=== PATIENT | female | born 1990 | race African-American/Black ===

== ENCOUNTER 2018-05-06 18:00 | Inpatient (IN) | payer MEDICAID ==
[2018-05-06] MEDS ORDERED: Sodium Chloride 0.9% 10 ML Syringe FLUSH PRN (18:40)
[2018-05-06] MEDS ORDERED: Nalbuphine 20 MG/1 ML Amp IVPUSH PRN (18:40)
[2018-05-06] MEDS ORDERED: Lidocaine 1% 50 ML MDV INJECT ONE (18:40)
[2018-05-06] MEDS ORDERED: Oxytocin/Lactated Ringers 10 UNIT/1,000 ML BAG IV SCH (18:45)
[2018-05-06] MEDS ORDERED: Ampicillin 2 GM in Sodium Chloride 0.9% 100 ML IV ONE (19:00)
[2018-05-06] MEDS ORDERED: ePHEDrine 50 MG/ML SDV IVPUSH PRN (19:23)
[2018-05-06] MEDS ORDERED: Ondansetron 4 MG/2 ML SDV IVPUSH PRN (19:23)
[2018-05-06] MEDS ORDERED: fentaNYL 100 MCG/2 ML SDV EPIDUR PRN (19:23)
[2018-05-06] MEDS ORDERED: Bupivacaine/fentaNYL/NS 100 ML Bag EPIDUR SCH (19:30)
--- NOTE | 2018-05-06 19:30 | PCM.PREANE ---
Preanesthetic Assessment - Anesthesia/Transfusion/Family Hx Anesthesia History: No Prior Anesthesia Family History of Anesthesia Reaction: No Transfusion History: No Prior Transfusion(s) Intubation History: Unknown - Review of Systems General: No Symptoms Pulmonary: No Symptoms Cardiovascular: No Symptoms Gastrointestinal: No Symptoms (GERD with ) Neurological: No Symptoms Other: Reports: None - Physical Assessment NPO Status Date: 05/06/18 NPO Status Time: 15:30 Pulse: 92 O2 Sat by Pulse Oximetry: 100 Respiratory Rate: 16 Blood Pressure: 127/74 Temperature: 37.4 C Height: 1.78 m Weight: 89.811 kg ASA Class: 2 Mental Status: Alert & Oriented x3 Airway Class: Mallampati = 2 Dentition: Reports: Normal Dentition, Caries Thyro-Mental Finger Breadths: 3 Mouth Opening Finger Breadths: 3 ROM/Head Extension: Full Lungs: Clear to Auscultation, Normal Respiratory Effort Cardiovascular: Regular Rate, Regular Rhythm, No Murmurs - Lab Values: Laboratory Last Values WBC 6.57 K/mm3 (3.98-10.04) 05/06/18 18:55 RBC 3.78 M/mm3 (3.98-5.22) L 05/06/18 18:55 Hgb 10.5 gm/L (11.2-15.7) L 05/06/18 18:55 Hct 33.6 % (34.1-44.9) L 05/06/18 18:55 MCV 88.9 fl (79.4-94.8) 05/06/18 18:55 MCH 27.8 pg (25.6-32.2) 05/06/18 18:55 MCHC 31.3 g/dl (32.2-35.5) L 05/06/18 18:55 RDW Std Deviation 43.3 fL (36.4-46.3) 05/06/18 18:55 Plt Count 199 K/mm3 (182-369) 05/06/18 18:55 MPV 11.5 fl (9.4-12.3) 05/06/18 18:55 Neut % (Auto) 60.7 % (34.0-71.1) 05/06/18 18:55 Lymph % (Auto) 26.2 % (19.3-51.7) 05/06/18 18:55 Will % (Auto) 11.7 % (4.7-12.5) 05/06/18 18:55 Eos % (Auto) 0.9 (0.7-5.8) 05/06/18 18:55 Baso % (Auto) 0.2 % (0.1-1.2) 05/06/18 18:55 Neut # (Auto) 3.99 K/mm3 (1.56-6.13) 05/06/18 18:55 Lymph # (Auto) 1.72 K/mm3 (1.18-3.74) 05/06/18 18:55 Will # (Auto) 0.77 K/mm3 (0.24-0.36) H 05/06/18 18:55 Eos # (Auto) 0.06 K/mm3 (0.04-0.36) 05/06/18 18:55 Baso # (Auto) 0.01 K/mm3 (0.01-0.08) 05/06/18 18:55 Above lab values reviewed and noted and within acceptable ranges to proceed with epidural. - Anesthesia Plan Pre-Op Medication Ordered: None - Acknowledgements Anesthesia Type Planned: Epidural Pt an Appropriate Candidate for the Planned Anesthesia: Yes Alternatives and Risks of Anesthesia Discussed w Pt/Guardian: Yes Pt/Guardian Understands and Agrees with Anesthesia Plan: Yes PreAnesthesia Questionnaire - CURRENT (IN HOUSE) MEDS Current Meds: Current Medications Ampicillin Sodium 2 gm/ Sodium (Chloride) 100 mls @ 200 mls/hr IV ONETIME ONE Stop: 05/06/18 19:29 Ampicillin Sodium 1 gm/ Sodium (Chloride) 100 mls @ 200 mls/hr IV Q4H DENNY Lactated Ringer's (Ringers, Lactated) 1,000 mls @ 100 mls/hr IV ASDIRECTED DENNY Oxytocin/Lactated Ringer's (Pitocin In Lr 10 Units/1,000 Ml) 10 unit in 1,000 mls @ 500 mls/hr IV .CONTINUOUS DENNY Nalbuphine HCl (Nubain) 10 mg IVPUSH Q2H PRN PRN Reason: Pain (moderate 4-6) Sodium Chloride (Saline Flush) 10 ml FLUSH ASDIRECTED PRN PRN Reason: Keep Vein Open Discontinued Medications Lidocaine HCl (Xylocaine 1%) 20 ml INJECT ONETIME ONE Stop: 05/06/18 18:41
[2018-05-06] MEDS ORDERED: Bupivacaine 0.25% 10 ML SDV ONE (22:00)
--- NOTE | 2018-05-06 22:23 | PCM.LDHP ---
L&D History of Present Illness - General Date of Service: 05/06/18 Admit Problem/Dx: Patient Status Order with Admit Dx/Problem 05/06/18 18:40 Patient Status [ADT] Routine Admission Diagnosis/Problem Admission Diagnosis/Problem Labor established Source of Information: Patient History Limitations: Reports: No Limitations - History of Present Illness Introduction:: 28 year old female at 40w5 days presents with SROM clear fluid at 332 this afternoon. PNC with Dr. Solorzano complicated by positive GBS, late transfer of care (initiated [facility]) Timing/Duration: Reports: seconds: - Related Data Allergies/Adverse Reactions: Allergies Allergy/AdvReac Type Severity Reaction Status Date / Time No Known Allergies Allergy Verified 05/06/18 20:22 Home Medications: Home Meds Folic Acid 400 mcg PO DAILY 05/06/18 [History] Past Medical History HEENT History: Reports: Impaired Vision UNHAIRER History: Reports: , Spontaneous Social & Family History - Family History Family Medical History: Noncontributory - Tobacco Use Smoking Status *Q: Never Smoker - Recreational Drug Use Recreational Drug Use: No H&P Review of Systems - Review of Systems: Review Of Systems: See Below General: Reports: No Symptoms HEENT: Reports: No Symptoms Pulmonary: Reports: No Symptoms Cardiovascular: Reports: No Symptoms Gastrointestinal: Reports: No Symptoms Genitourinary: Reports: No Symptoms Musculoskeletal: Reports: No Symptoms Skin: Reports: No Symptoms Psychiatric: Reports: No Symptoms Neurological: Reports: No Symptoms Hematologic/Lymphatic: Reports: No Symptoms Immunologic: Reports: No Symptoms L&D Exam - Exam Exam: See Below - Vital Signs Vital Signs: Last Vital Signs Temp 37.4 C 05/06/18 19:33 Pulse 92 05/06/18 19:33 Resp 16 05/06/18 19:33 BP 127/74 05/06/18 19:33 Pulse Ox 100 05/06/18 19:33 Weight: 89.811 kg - OB Specific Contraction Intensity: Mild to Moderate Presentation: Vertex - Godfrey Score Godfrey Score Cervix Position: Midposition Godfrey Score Consistency: Soft Godfrey Score Dilation: > 5 cm Godfrey Score Infant's Station: -2 - Exam General: Alert, Oriented Lungs: Normal Respiratory Effort Extremities: Normal Inspection Skin: Warm, Dry, Intact Neurological: Cranial Nerves Intact - Patient Data Lab Results Last 24 hrs: Laboratory Results - last 24 hr 05/06/18 05/06/18 Range/Units 18:55 18:55 WBC 6.57 (3.98-10.04) K/mm3 RBC 3.78 L (3.98-5.22) M/mm3 Hgb 10.5 L (11.2-15.7) gm/L Hct 33.6 L (34.1-44.9) % MCV 88.9 (79.4-94.8) fl MCH 27.8 (25.6-32.2) pg MCHC 31.3 L (32.2-35.5) g/dl RDW Std Deviation 43.3 (36.4-46.3) fL Plt Count 199 (182-369) K/mm3 MPV 11.5 (9.4-12.3) fl Neut % (Auto) 60.7 (34.0-71.1) % Lymph % (Auto) 26.2 (19.3-51.7) % [place] % (Auto) 11.7 (4.7-12.5) % Eos % (Auto) 0.9 (0.7-5.8) Baso % (Auto) 0.2 (0.1-1.2) % Neut # (Auto) 3.99 (1.56-6.13) K/mm3 Lymph # (Auto) 1.72 (1.18-3.74) K/mm3 [place] # (Auto) 0.77 H (0.24-0.36) K/mm3 Eos # (Auto) 0.06 (0.04-0.36) K/mm3 Baso # (Auto) 0.01 (0.01-0.08) K/mm3 Blood Type B POSITIVE Gel Antibody Screen Negative Result Diagrams: 05/06/18 18:55 Problem List Initiated/Reviewed/Updated: Yes Orders Last 24hrs: Active Orders 24 hr Category Date Time Status Patient Status [ADT] Routine ADT 05/06/18 18:40 Active Activity as Tolerated [RC] PFP Care 05/06/18 18:40 Active Communication Order [RC] ASDIRECTED Care 05/06/18 18:40 Active Heart Tones [RC] ASDIRECTED Care 05/06/18 18:41 Active Notify Provider [RC] ASDIRECTED Care 05/06/18 19:22 Active Notify Provider [RC] PFP Care 05/06/18 18:40 Active Notify Provider [RC] PRN Care 05/06/18 18:40 Active Oxygen Therapy [RC] ASDIRECTED Care 05/06/18 19:22 Active Peripheral IV Care [RC] . DIRECTED Care 05/06/18 18:41 Active Pulse Oximetry [RC] ASDIRECTED Care 05/06/18 19:22 Active Urinary Catheter Assessment [RC] ASDIRECTED Care 05/06/18 18:40 Active Vital Signs [RC] PER UNIT ROUTINE Care 05/06/18 18:40 Active Regular Diet [DIET] Diet 05/06/18 Dinner Active PATIENT RETYPE [BBK] Stat Lab 05/06/18 18:55 Results RAPID PLASMA REAGIN,RPR [CHEM] Stat Lab 05/06/18 18:55 Received RUBELLA ANTIBODY IGG [CHEM] Stat Lab 05/06/18 18:55 Received TYPE AND SCREEN [BBK] Stat Lab 05/06/18 18:55 Results Ampicillin 1 gm Med 05/06/18 23:00 Active Sodium Chloride 0.9% [Normal Saline] 100 ml IV Q4H Bupivacaine/fentaNYL/NS [fentaNYL/Bupivacaine/NS 2 MCG- Med 05/06/18 19:30 Active 0.125% 100 ML] 100 ml EPIDUR ASDIRECTED Lactated Ringers [Ringers, Lactated] 1,000 ml Med 05/06/18 18:45 Active IV ASDIRECTED Nalbuphine [Nubain] Med 05/06/18 18:40 Active 10 mg IVPUSH Q2H PRN Ondansetron [Zofran] Med 05/06/18 19:23 Active 4 mg IVPUSH ONETIME PRN Oxytocin/Lactated Ringers [Pitocin in LR 10 Units/1,000 Med 05/06/18 18:45 Active ML] 10 unit in 1,000 ml IV .CONTINUOUS Sodium Chloride 0.9% [Saline Flush] Med 05/06/18 18:40 Active 10 ml FLUSH ASDIRECTED PRN ePHEDrine [ePHEDrine Sulfate] Med 05/06/18 19:23 Active 5 mg IVPUSH ASDIRECTED PRN fentaNYL [Sublimaze] Med 05/06/18 19:23 Active 100 mcg EPIDUR Q3H PRN Electronic Heart Tones Ext w TOCO [WOMSER] Oth 05/06/18 18:40 Ordered Routine Electronic Heart Tones Internal [WOMSER] Per Unit Ot 05/06/18 18:40 Ordered Routine Peripheral IV Insertion Adult [OM.PC] Routine Oth 05/06/18 18:40 Ordered Resuscitation Status Routine Resus Stat 05/06/18 18:40 Ordered Medication Orders Ephedrine Sulfate (Ephedrine Sulfate) 5 mg IVPUSH ASDIRECTED PRN PRN Reason: Hypotension Fentanyl (Sublimaze) 100 mcg EPIDUR Q3H PRN PRN Reason: Pain Fentanyl/Bupivacaine HCl (Fentanyl/Bupivacaine/Ns 2 Mcg-0.125% 100 Ml) 100 ml EPIDUR ASDIRECTED DENNY Ampicillin Sodium 1 gm/ Sodium (Chloride) 100 mls @ 200 mls/hr IV Q4H DENNY Lactated Ringer's (Ringers, Lactated) 1,000 mls @ 100 mls/hr IV ASDIRECTED DENNY Oxytocin/Lactated Ringer's (Pitocin In Lr 10 Units/1,000 Ml) 10 unit in 1,000 mls @ 500 mls/hr IV .CONTINUOUS DENNY Nalbuphine HCl (Nubain) 10 mg IVPUSH Q2H PRN PRN Reason: Pain (moderate 4-6) Ondansetron HCl (Zofran) 4 mg IVPUSH ONETIME PRN PRN Reason: Nausea/Vomiting Sodium Chloride (Saline Flush) 10 ml FLUSH ASDIRECTED PRN PRN Reason: Keep Vein Open Assessment/Plan Comment:: 28 year old female in active labor. GBS positive. Initiate antibiotics, then plan augmentation if needed after second dose. CBC, type and screen, RPR.
[2018-05-06] MEDS: Lactated Ringers 1,000 ML IV SCH (22:40)
[2018-05-06] MEDS: Ampicillin 1 GM in Sodium Chloride 0.9% 100 ML IV SCH (23:16)
[2018-05-07] MEDS: Lactated Ringers 1,000 ML IV SCH ×2 (00:11→02:02)
[2018-05-07] MEDS: Ampicillin 1 GM in Sodium Chloride 0.9% 100 ML IV SCH (03:01)
--- NOTE | 2018-05-07 05:59 | PCM.SN ---
- Free Text/Narrative Note: Stage I - Patient presented in active labor. GBS positive. Antibiotics initiated. Progressed to complete with reassuring monitoring. Epidural for anesthesia. Stage II - Head delivered in controlled manner over intact perineum. Body and shoulders followed atraumatically. Positive cry. Cord clamped and cut. Baby to warmer. Viable female, weight 3060g at 0451 APGARS 7/9. Stage III - of intact placenta. 3vc cord. EBL 500. Small second degree midline laceration repaired with 3-0 vicryl
[2018-05-07] MEDS ORDERED: Lanolin 100% Cream 7 GM Tube TOP PRN (06:09)
[2018-05-07] MEDS ORDERED: Benzocaine/Menthol 20%-0.5% Spray 56 GM Canister TOP PRN (06:09)
[2018-05-07] MEDS ORDERED: Ibuprofen 600 MG Tab PO PRN (06:09)
[2018-05-07] MEDS ORDERED: Witch Hazel Medicated Pads 100/Jar TOP PRN (06:09)
--- NOTE | 2018-05-07 17:28 | PCM48HPAN ---
Post Anesthesia Note - EVALUATION WITHIN 48HRS OF ANESTHETIC Vital Signs in Normal Range: Yes Patient Participated in Evaluation: Yes Respiratory Function Stable: Yes Airway Patent: Yes Cardiovascular Function Stable: Yes Hydration Status Stable: Yes Pain Control Satisfactory: Yes Nausea and Vomiting Control Satisfactory: Yes Mental Status Recovered: Yes
== END 2018-05-08 12:00 | disposition home or self-care (01) | DRG 775 ==
LOC: JD.OBCHECK 18:00 → JD.OB 18:00 → JD.OBCHECK 18:39 → JD.OB 18:40 → OBSVTOIN 05-07 04:51 → JD.OB 05-07 04:51
PROVIDERS: ADMIT Obstetrics & Gynecology; ATTEND Obstetrics & Gynecology
PROC: 00HU33Z Insertion of Infusion Device into Spinal Canal, Percutaneous Approach (ICD-10-PCS; 2018-05-06)
PROC: 3E0R3BZ Introduction of Anesthetic Agent into Spinal Canal, Percutaneous Approach (ICD-10-PCS; 2018-05-06)
PROC: 10E0XZZ Delivery of Products of Conception, External Approach (ICD-10-PCS; principal; 2018-05-07)
PROC: 0KQM0ZZ Repair Perineum Muscle, Open Approach (ICD-10-PCS; 2018-05-07)
DX: O48.0 Post-term pregnancy (principal); Z3A.40 40 weeks gestation of pregnancy; O99.824 Streptococcus B carrier state complicating childbirth; O70.1 Second degree perineal laceration during delivery; Z37.0 Single live birth
CPT/HCPCS: 36415; 51702; 59025; 59300; 59409; 85025; 86592; 86762; 86850; 86900; 86901; A9270-GY; J0290; J2590; J3010; J7030; J7120